=== PATIENT | male | born 1975 | race Caucasian/White ===

== ENCOUNTER 2017-11-03 14:51 | Emergency (ER) | END 2017-11-03 17:58 | disposition home or self-care (01) ==

== ENCOUNTER 2018-02-03 07:19 | Emergency (ER) | END 2018-02-03 08:10 | disposition home or self-care (01) ==

== ENCOUNTER 2018-03-12 10:06 | Emergency (ER) | END 2018-03-12 12:41 | disposition home or self-care (01) ==

== ENCOUNTER 2018-03-15 06:31 | Emergency (ER) | END 2018-03-15 08:55 | disposition home or self-care (01) ==